=== PATIENT | female | born 1970 | race Hispanic/Latino ===

== ENCOUNTER 2017-08-14 11:41 | Inpatient (IN) | payer OTHER ==
[2017-08-13] MEDS: CEFAZOLIN SOD 1 GM VIAL IV SCH (22:00)
[2017-08-14] VITALS (8 sets, daily range): BP systolic 137–150; BP diastolic 65–91
[~2017-08-14] VITALS: Ht 165.1 cm; Wt 86.2 kg
[~2017-08-14 11:41] MED LIST: ATORVASTATIN CA20 MG PO; BENZONATATE100 MG PO; LISINOPRIL10 MG PO
--- OUTSIDE RECORDS SUMMARY | 2017-08-14 11:44 | XMS REPORT | Clinical Summary ---
Author Author [facility] Organization [facility] Address Unknown Phone Unavailable Care Team Providers Care Information Security Associate Name Role Phone Asked, Pcp PCP Unavailable Allergies No Known Allergies Current Medications Prescription Sig. Disp. Refills Start End Date Status Date ondansetron ODT (ZOFRAN Take 1 tablet (4 mg 10 tablet 0 05/15/20 Active ODT) 4 MG disintegrating total) by mouth every 8 17 tablet (eight) hours as needed for nausea or vomiting for up to 10 doses. dicyclomine (BENTYL) 20 Take 1 tablet (20 mg 10 tablet 0 05/15/20 Active mg tablet total) by mouth every 6 17 (six) hours as needed (bloating, GI cramping) for up to 10 doses. Active Problems Not on file Encounters Date Type Specialty Care Team Description 05/14/2017 Emergency Emergency Medicine Nate Noriega NP-C Epigastric pain (Primary - Edson Mendez Dx); 05/15/2017 MD Chirag Periumbilical abdominal pain; Non-intractable vomiting with nausea, unspecified vomiting type; Diarrhea, unspecified type after 08/13/2016 Social History Tobacco Use Types Packs/Day Years Used Date Never Assessed Sex Assigned at Date Recorded Not on file Last Filed Vital Signs Vital Sign Reading Time Taken Blood Pressure 144/69 05/15/2017 1:00 AM TURN SEWER Pulse 75 05/15/2017 1:00 AM TURN SEWER Temperature 37.2 C (98.9 F) 05/14/2017 7:57 PM TURN SEWER Respiratory Rate 20 05/15/2017 1:00 AM TURN SEWER Oxygen Saturation 95% 05/15/2017 1:00 AM TURN SEWER Inhaled Oxygen - - Concentration Weight 86.2 kg (190 lb) 05/14/2017 7:53 PM TURN SEWER Height 162.6 cm (5' 4") 05/14/2017 7:53 PM TURN SEWER Body Mass Index 32.61 05/14/2017 7:53 PM TURN SEWER Plan of Treatment Health Maintenance Due Date Last Done Comments PAP SMEAR 1989 INFLUENZA VACCINE 01/15/2017 Results * ECG ED Preliminary Interpretation - NOT AN ORDER (05/15/2017 2:22 AM) Narrative CHEVY Oviedo 05/15/20171:11 AM ECG ED Preliminary Interpretation - Not an Order Performed by: NATE NORIEGA Authorized by: NATE NORIEGA ECG reviewed by ED Physician in the absence of a television operator: yes Previous ECG: Previous ECG:Unavailable Interpretation: Interpretation: non-specific Rate: ECG rate:77 ECG rate assessment: normal Rhythm: Rhythm: sinus rhythm QRS: QRS axis:Normal Conduction: Conduction: normal ST segments: ST segments:Normal T waves: T waves: inverted Inverted:II, III, aVF, V3, V4 and V6 * Troponin (05/15/2017 12:22 AM) Only the most recent of 2 results within the time period is included. Component Value Ref Range Troponin <0.300 0.000 - 0.300 ng/mL Comment: 0.30 - 1.49 ng/ml May indicate increased risk of acute coronary syndrome. >=1.5 ng/ml Consistent with acute myocardial infarction. The diagnostic value of a single normal or non-diagnostic result is questionable. Serial samples at 2-6 hour intervals are required to rule out acute myocardial injury. Specimen Performing Laboratory Plasma specimen [facility] DEPARTMENT OF PATHOLOGY AND GENOMIC MEDICINE [address] [place] [address] * ECG 12 lead (05/14/2017 11:00 PM) Component Value Ref Range Ventricular rate 77 Atrial rate 77 AL interval 124 QRSD interval 82 QT interval 428 QTC interval 484 P axis 1 35 QRS axis 1 9 T wave axis 264 EKG impression Normal sinus rhythm-ST & T wave abnormality, consider inferior ischemia-ST & T wave abnormality, consider anterior ischemia-Prolonged QT-Abnormal ECG-No previous ECGs available- Specimen Performing Laboratory [facility] [address] [place] [address] * Urinalysis screen and microscopy, with reflex to culture (05/14/2017 10:44 PM) Component Value Ref Range Specimen site Clean catch Color, UA Straw Appearance, UA Clear Specific gravity, UA 1.014 1.001 - 1.035 pH, UA 7.0 5.0 - 8.5 Protein, UA Negative Negative Glucose, UA Negative Negative Ketones, UA Negative Negative Bilirubin, UA Negative Negative Blood, UA Negative Negative Nitrite, UA Negative Negative Urobilinogen, UA Negative <2.0 Leukocyte esterase, UA Negative Negative Epithelial cells, UA Few /HPF WBC, UA 0-5 0 - 4 /HPF RBC, UA 0-5 0 - 2 /HPF Bacteria, UA None seen None seen Yeast, UA None seen Yeast with pseudohyphae, None seen UA Specimen Performing Laboratory Urine [facility] DEPARTMENT OF PATHOLOGY AND GENOMIC MEDICINE [id number] [place] [address] [place] [address] * Urine culture (05/14/2017 10:44 PM) Component Value Ref Range Urine culture SEE COMMENTComment: Bacteriuria screen negative. Specimen Performing Laboratory Urine [facility] DEPARTMENT OF PATHOLOGY AND [facility] [id number] [place] [address] [place] [address] * CT Abdomen Pelvis W Contrast (05/14/2017 10:30 PM) Specimen Performing Laboratory [facility] [address] [place] [id number] ABDOMEN PELVIS W CONTRAST CLINICAL INDICATION: ABDOMINAL PAIN TECHNIQUE:Multidetector CT imaging of the abdomen and pelvis was performed following the intravenous administration of iodinated contrast with multiplanar reconstructions.CT imaging was performed with iterative reconstruction technique and/or automated exposure control to reduce radiation dose. COMPARISON:None FINDINGS: LOWER THORAX:Aside from mild bibasilar atelectasis, the visualized lungs are clear. LIVER:There is hepatic steatosis. No focal lesions are identified. BILIARY:There are surgical changes related to cholecystectomy. There is no abnormal biliary dilation. SPLEEN:Normal. PANCREAS:Normal. ADRENALS:Normal. KIDNEYS:There is relative hypoenhancement of the upper half of the right kidney with an internal cystic focus in this nonenhancing region. The left kidney is normal in appearance. There is no hydronephrosis. GI:Large and small bowel are normal in caliber.There are no inflammatory changes.Appendix is visualized and appears normal. VASCULAR:Unremarkable LYMPH NODES:No enlarged lymph nodes in the abdomen or pelvis. PELVIS:The urinary bladder is normal in appearance. There is a 1.5 cm calcified uterine fibroid. The uterus is otherwise unremarkable. BONES:There are no acute osseous abnormalities. OTHER:There is no ascites or pneumoperitoneum. IMPRESSION: 1. Relative hypoenhancement of the upper half of the right kidney, with an internal cystic area. This is nonspecific with some possibilities including a renal infarction and complex renal mass. Correlation with prior imaging is recommended if available. If no prior imaging is available, a renal protocol MRI is recommended for further characterization. 2. Hepatic steatosis. 3. Calcified uterine fibroid. [facility]-[id number] Procedure Note Hm Interface, Radiology Results Incoming - 05/14/2017 10:[address] ABDOMEN PELVIS W CONTRAST CLINICAL INDICATION: ABDOMINAL PAIN TECHNIQUE: Multidetector CT imaging of the abdomen and pelvis was performed following the intravenous administration of iodinated contrast with multiplanar reconstructions. CT imaging was performed with iterative reconstruction technique and/or automated exposure control to reduce radiation dose. COMPARISON: None FINDINGS: LOWER THORAX: Aside from mild bibasilar atelectasis, the visualized lungs are clear. LIVER: There is hepatic steatosis. No focal lesions are identified. BILIARY: There are surgical changes related to cholecystectomy. There is no abnormal biliary dilation. SPLEEN: Normal. PANCREAS: Normal. ADRENALS: Normal. KIDNEYS: There is relative hypoenhancement of the upper half of the right kidney with an internal cystic focus in this nonenhancing region. The left kidney is normal in appearance. There is no hydronephrosis. GI: Large and small bowel are normal in caliber. There are no inflammatory changes. Appendix is visualized and appears normal. VASCULAR: Unremarkable LYMPH NODES: No enlarged lymph nodes in the abdomen or pelvis. PELVIS: The urinary bladder is normal in appearance. There is a 1.5 cm calcified uterine fibroid. The uterus is otherwise unremarkable. BONES: There are no acute osseous abnormalities. OTHER: There is no ascites or pneumoperitoneum. IMPRESSION: 1. Relative hypoenhancement of the upper half of the right kidney, with an internal cystic area. This is nonspecific with some possibilities including a renal infarction and complex renal mass. Correlation with prior imaging is recommended if available. If no prior imaging is available, a renal protocol MRI is recommended for further characterization. 2. Hepatic steatosis. 3. Calcified uterine fibroid. [facility]-[id number] * hCG qualitative, serum screen (05/14/2017 9:35 PM) Component Value Ref Range hCG qualitative, serum Negative Specimen Performing Laboratory Blood [facility] DEPARTMENT OF PATHOLOGY AND GENOMIC MEDICINE [address] [place] [address] * Estimated GFR (05/14/2017 8:45 PM) Component Value Ref Range GFR Non Af Amer 89 mL/min/1.73 m2 GFR Af Amer >90 mL/min/1.73 m2 Comment: Chronic kidney disease: <60 mL/min/1.73m2 Kidney failure: <15 mL/min/1.73m2 The estimated GFR is calculated from the IDMS-traceable Modification of Diet in Renal Disease Equation. The accuracy of the calculation is poor when the creatinine is normal. Calculated values >90 mL/min/1.73m2 are not reported. This equation has not been validated in children (<18 years), women, the elderly (>70 years), or ethnic groups other than Caucasians and Americans. Specimen Performing Laboratory Plasma specimen [facility] DEPARTMENT OF PATHOLOGY AND [facility] [id number] [place] [address] [place] [address] * CBC with platelet and differential (05/14/2017 8:45 PM) Component Value Ref Range WBC 9.42 4.50 - 11.00 k/uL RBC 5.03 4.20 - 5.50 m/uL HGB 15.5 12.0 - 16.0 g/dL HCT 43.9 37.0 - 47.0 % MCV 87.3 82.0 - 100.0 fL MCH 30.8 27.0 - 34.0 pg MCHC 35.3 31.0 - 37.0 g/dL RDW - SD 39.9 37.0 - 55.0 fL MPV 10.0 8.8 - 13.2 fL Platelet count 270 150 - 400 k/uL Nucleated RBC 0.00 /100 WBC Neutrophils 87.3 (H) 39.0 - 69.0 % Lymphocytes 6.5 (L) 25.0 - 45.0 % Monocytes 5.7 0.0 - 10.0 % Eosinophils 0.1 0.0 - 5.0 % Basophils 0.1 0.0 - 1.0 % Immature granulocytes 0.3Comment: "Immature granulocytes" 0.0 - 1.0 % (promyelocytes, myelocytes, metamyelocytes) Specimen Performing Laboratory Blood [facility] DEPARTMENT OF PATHOLOGY AND GENOMIC MEDICINE [address] [place] [address] * B natriuretic peptide (05/14/2017 8:45 PM) Component Value Ref Range BNP 13 0 - 100 pg/mL Specimen Performing Laboratory Blood [facility] DEPARTMENT OF PATHOLOGY AND GENOMIC MEDICINE [address] [place] [address] * Lipase level (05/14/2017 8:45 PM) Component Value Ref Range Lipase 13 13 - 60 U/L Specimen Performing Laboratory Plasma specimen [facility] DEPARTMENT OF PATHOLOGY AND GENOMIC MEDICINE [address] [place] [address] * Comprehensive metabolic panel (05/14/2017 8:45 PM) Component Value Ref Range Sodium 138 135 - 148 mEq/L Potassium 2.8 (LL) 3.5 - 5.0 mEq/L Comment: Results called to and read back by SARAVANAN LINCOLN IN ER at 05/14/2017 21:15 by [id number]. Chloride 96 (L) 98 - 112 mEq/L CO2 27 24 - 31 mEq/L Anion gap 15 7 - 15 mEq/L Comment: Starting from September , anion gap calculation no longer incorporates potassium. Please note the change. BUN 14 6 - 20 mg/dL Creatinine 0.7 0.5 - 0.9 mg/dL Glucose 129 (H) 65 - 99 mg/dL Calcium 9.2 8.3 - 10.2 mg/dL Protein 8.1 6.3 - 8.3 g/dL Comment: [place] 4.6-7.0 g/dL 1 week 4.4-7.6 g/dL 7 months-1year 5.1-7.3 g/dL 1-2 years 5.6-7.5 g/dL >3 years 6.0-8.0 g/dL 18-150 6.3-8.3 g/dL Albumin 4.6 3.5 - 5.0 g/dL A/G ratio 1.3 0.7 - 3.8 Alkaline phosphatase 107 (H) 35 - 104 U/L AST 41 (H) 10 - 35 U/L ALT 58 (H) 5 - 50 U/L Total bilirubin 0.4 0.0 - 1.2 mg/dL Specimen Performing Laboratory Plasma specimen [facility] DEPARTMENT OF PATHOLOGY AND GENOMIC MEDICINE [address] [place] [address] after 08/13/2016
[2017-08-14] MEDS ORDERED: CEFAZOLIN SOD 2 GM/D5W 50ML 50 ML IV ONE (12:21)
[2017-08-14] MEDS ORDERED: LOSARTAN POTAS100 MG PO (13:02)
[2017-08-14] MEDS ORDERED: MIDAZOLAM HCL 2 MG/2 ML VIAL ONE (13:21)
[2017-08-14] MEDS ORDERED: FENTANYL CITRATE/PF 100MCG/2 ML INJ ONE ×2 (13:21→17:44)
[2017-08-14] MEDS ORDERED: IOPAMIDOL 610MG/1ML 300 MG/ML VIAL IV ONE (13:26)
[2017-08-14] MEDS ORDERED: LIDOCAINE HCL 2% LOCAL INJ 5 ML SDV VIAL INJ ONE (13:27)
[2017-08-14] MEDS ORDERED: SEVOFLURANE INHAL SOLN 250 ML PEN BTL ONE (13:27)
[2017-08-14] MEDS ORDERED: ROCURONIUM BROMIDE 10 MG/ML 5ML VIAL ONE (13:27)
[2017-08-14] MEDS ORDERED: DEXAMETHASONE SOD PHOS INJ 4 MG/ML VIAL ONE (13:27)
[2017-08-14] MEDS ORDERED: PROPOFOL IV EMULSION 10 MG/ML 20 ML VIAL ONE (13:27)
[2017-08-14] MEDS ORDERED: ONDANSETRON HCL INJ 2 MG/ML VIAL ONE (13:27)
[2017-08-14] MEDS ORDERED: MANNITOL 25% 12.5GM/50ML 0 ML ONE (13:36)
[2017-08-14] MEDS ORDERED: GELATIN SPONGE SZ 100 ONE (13:36)
[2017-08-14] MEDS ORDERED: HYDROMORPHONE 1MG/1ML INJ ONE ×2 (16:28→16:34)
[2017-08-14] MEDS ORDERED: DIPHENHYDRAMINE HCL INJ 50 MG/ML VIAL IM PRN (17:45)
[2017-08-14] MEDS ORDERED: MORPHINE SULFATE 1 MG/ML 30ML PCA IV PRN (17:45)
[2017-08-14] MEDS ORDERED: NALOXONE HCL INJ 0.4 MG/ML AMP IV PRN (17:45)
--- NOTE | 2017-08-14 18:16 | Diagnostic Imaging Report ---
PROCEDURE: CHEST SINGLE (PORTABLE) COMPARISON: None. INDICATIONS: POST OP right nephrectomy FINDINGS: Lines/tubes: Enteric tube terminates at the diaphragm in the proximal stomach. LUNGS: Mild posterior atelectasis in the right lung. Left lung is clear. PLEURA: No effusions or pneumothorax. HEART \T\ MEDIASTINUM: The heart is normal in size. No hilar lymphadenopathy. BONES: No focal osseous lesions. SOFT TISSUES: Pneumoperitoneum is present with surgical clips in the upper right quadrant and right upper quadrant skin andrae. CONCLUSION: No evidence of pneumothorax. Enteric tube as described above. Postoperative pneumoperitoneum. Dictated by: Mason De Oliveira M.D. on 08/14/2017 at 18:16 Electronically approved by: Mason De Oliveira M.D. on 08/14/2017 at 18:16
--- OUTSIDE RECORDS SUMMARY | 2017-08-14 18:16 | XMS REPORT | Clinical Summary ---
Author Author [facility] Address Unknown Phone Unavailable Care Team Providers Care Wax Ball Knock Out Worker Name Role Phone Asked, Pcp PCP Unavailable [...] Taken Blood Pressure 144/69 05/15/2017 1:00 AM TRANSIT CLERK Pulse 75 05/15/2017 1:00 AM TRANSIT CLERK Temperature 37.2 C (98.9 F) 05/14/2017 7:57 PM TRANSIT CLERK Respiratory Rate 20 05/15/2017 1:00 AM TRANSIT CLERK Oxygen Saturation 95% 05/15/2017 1:00 AM TRANSIT CLERK Inhaled Oxygen - - Concentration Weight 86.2 kg (190 lb) 05/14/2017 7:53 PM TRANSIT CLERK Height 162.6 cm (5' 4") 05/14/2017 7:53 PM TRANSIT CLERK Body Mass Index 32.61 05/14/2017 7:53 PM TRANSIT CLERK Plan of Treatment Health Maintenance Due Date Last Done Comments PAP SMEAR 1989 INFLUENZA VACCINE 01/15/2017 Results * ECG ED Preliminary Interpretation - NOT AN ORDER (05/15/2017 2:22 AM) Narrative CHEVY Oviedo 05/15/20171:11 AM ECG ED Preliminary Interpretation - Not an Order Performed by: NATE NORIEGA Authorized by: NATE NORIEGA ECG reviewed by ED Physician in the absence of a geological engineer: yes Previous ECG: Previous ECG:Unavailable Interpretation: Interpretation: [...] myocardial injury. Specimen Performing Laboratory Plasma specimen [facility] DEPARTMENT OF PATHOLOGY AND GENOMIC MEDICINE [address] [place] [address] * ECG 12 lead (05/14/2017 11:00 PM) Component Value Ref Range Ventricular rate 77 Atrial rate 77 IA interval 124 QRSD interval 82 QT interval 428 QTC interval 484 P axis 1 35 QRS axis 1 9 T wave axis 264 EKG impression Normal sinus rhythm-ST & T wave abnormality, consider inferior ischemia-ST & T wave abnormality, consider anterior ischemia-Prolonged QT-Abnormal ECG-No previous ECGs available- Specimen Performing Laboratory [facility] [address] [place] [address] * Urinalysis screen and microscopy, with reflex [...] None seen UA Specimen Performing Laboratory Urine [facility] DEPARTMENT OF PATHOLOGY AND GENOMIC MEDICINE [id number] [place] [address] [place] [address] * Urine culture (05/14/2017 10:44 PM) Component Value Ref Range Urine culture SEE COMMENTComment: Bacteriuria screen negative. Specimen Performing Laboratory Urine [facility] DEPARTMENT OF PATHOLOGY AND [facility] [id number] [place] [address] [place] [address] * CT Abdomen Pelvis W Contrast (05/14/2017 10:30 PM) Specimen Performing Laboratory [facility] [address] [place] [address] ABDOMEN PELVIS W CONTRAST CLINICAL [...] 2. Hepatic steatosis. 3. Calcified uterine fibroid. [facility]-[id number] Procedure Note Hm Interface, Radiology Results Incoming - 05/14/2017 10:[address] ABDOMEN PELVIS W CONTRAST CLINICAL INDICATION: [...] 2. Hepatic steatosis. 3. Calcified uterine fibroid. [facility]-[id number] * hCG qualitative, serum screen (05/14/2017 9:35 PM) Component Value Ref Range hCG qualitative, serum Negative Specimen Performing Laboratory Blood [facility] DEPARTMENT OF PATHOLOGY AND GENOMIC MEDICINE [address] [place] [address] * Estimated GFR (05/14/2017 8:45 PM) Component [...] and Americans. Specimen Performing Laboratory Plasma specimen [facility] DEPARTMENT OF PATHOLOGY AND [facility] MEDICINE [id number] [place] [address] [place] [address] * CBC with platelet and differential (05/14/2017 [...] (promyelocytes, myelocytes, metamyelocytes) Specimen Performing Laboratory Blood [facility] DEPARTMENT OF PATHOLOGY AND GENOMIC MEDICINE [address] [place] [address] * B natriuretic peptide (05/14/2017 8:45 PM) Component Value Ref Range BNP 13 0 - 100 pg/mL Specimen Performing Laboratory Blood [facility] DEPARTMENT OF PATHOLOGY AND GENOMIC MEDICINE [address] [place] [address] * Lipase level (05/14/2017 8:45 PM) Component Value Ref Range Lipase 13 13 - 60 U/L Specimen Performing Laboratory Plasma specimen [facility] DEPARTMENT OF PATHOLOGY AND GENOMIC MEDICINE [address] [place] [address] * Comprehensive metabolic panel (05/14/2017 8:45 PM) Component Value Ref Range Sodium 138 135 - 148 mEq/L Potassium 2.8 (LL) 3.5 - 5.0 mEq/L Comment: Results called to and read back by SARAVANAN LINCOLN IN ER at 05/14/2017 21:15 by [id number]. Chloride 96 (L) 98 - 112 mEq/L [...] Protein 8.1 6.3 - 8.3 g/dL Comment: [place] 4.6-7.0 g/dL 1 week 4.4-7.6 g/dL 7 [...] 1.2 mg/dL Specimen Performing Laboratory Plasma specimen [facility] DEPARTMENT OF PATHOLOGY AND GENOMIC MEDICINE [address] [place] [address] after 08/13/2016
[2017-08-14] MEDS: D5.45%NS/KCL 20MEQ 1,000 ML IV SCH (18:30)
[2017-08-14] MEDS: ACETAMINOPHEN 1000 MG/100 ML IV PRN (20:45)
[2017-08-14] MEDS: ONDANSETRON HCL INJ 2 MG/ML VIAL IV PRN (20:45)
[2017-08-14 21:49] LABS: BASOPHILS % 0.1 % (0.0-1.0); HEMATOCRIT 39.6 % (34.2-44.1); HEMOGLOBIN 13.4 g/dL (12.0-16.0); LYMPHOCYTES # (AUTO) 0.5 (1.0-3.2); LYMPHOCYTES % 3.1 % (18.0-39.1); MEAN CORPUSCULAR HEMOGLOBIN 30.6 pg (28-32); MEAN CORPUSCULAR HGB CONC 33.8 g/dL (31-35); MEAN CORPUSCULAR VOLUME 90.4 fL (81-99); MONOCYTES # (AUTO) 0.6 (0.2-0.8); MONOCYTES % 3.8 % (4.4-11.3); NEUTROPHILS # (AUTO) 14.2 (2.1-6.9); NEUTROPHILS % 92.7 % (38.7-80.0); PLATELET COUNT 271 x10e3/uL (140-360); RED BLOOD COUNT 4.38 x10e6/uL (3.6-5.1); RED CELL DISTRIBUTION WIDTH 12.2 % (11.7-14.4)
[2017-08-14 22:00] LABS: INR 1.03; PROTHROMBIN TIME 12.7 seconds (11.9-14.5)
[2017-08-14] MEDS ORDERED: CEFAZOLIN SOD 1 GM/NS 50ML 50 ML IV SCH (22:00)
[2017-08-14 22:05] LABS: ANION GAP 13.7 mmol/L (8-16); BLOOD UREA NITROGEN 15 mg/dL (7-26); BUN/CREATININE RATIO 19 (6-25); CALCIUM 8.1 mg/dL (8.4-10.2); CARBON DIOXIDE 21 mmol/L (22-29); CHLORIDE 107 mmol/L (98-107); CREATININE, SERUM 0.81 mg/dL (0.57-1.11); EST GLOMERULAR FILTRATION RATE > 60 ML/MIN (60-); GLUCOSE 192 mg/dL (74-118); MAGNESIUM 1.7 MG/DL (1.3-2.1); POTASSIUM 3.7 mmol/L (3.5-5.1); SODIUM 138 mmol/L (136-145)
--- NOTE | 2017-08-14 23:51 | Operative Report ---
DATE OF PROCEDURE: August 14, 2017 SERVICE: Urology. PREOPERATIVE DIAGNOSES: 1. Right solid renal mass suspicious for malignancy. 2. Microhematuria. 3. Cystocele. POSTOPERATIVE DIAGNOSES: 1. Right solid renal mass suspicious for malignancy. 2. Microhematuria. 3. Cystocele. OPERATIONS PERFORMED: 1. Cystoscopy and bilateral retrograde pyelograms under fluoroscopic control, this is done as part of the assessment of the microhematuria. This is done with different instruments in the rest of the surgery. 2. Interpretation of x-ray, radiologist not present. 3. Supervision of fluoroscopy. 4. Pelvic examination under anesthesia, this is done as part of evaluation of the cystocele, not related to any other procedure. 5. Right radical nephrectomy. MOTOR VEHICLE LICENCE EXAMINER: Dr. Silva ANESTHESIA: General. CLINICAL INDICATION NOTE: This is a 47-year-old patient who was found to have a solid mass in the right kidney very suspicious for malignancy. The patient was brought for assessment of the lower and upper tract, and right radical nephrectomy. Procedure was discussed with the patient. Potential benefits and complications discussed, explained and accepted. DESCRIPTION OF PROCEDURE AND FINDINGS: After proper level of anesthesia was achieved, the patient was placed in lithotomy position in a separate room from the nephrectomy room, prepped and draped in sterile fashion. Urethra inspected is unremarkable. Patient does have a cystocele. The bladder itself is unremarkable. No tumor or foreign body is identified. Open-end catheters were inserted bilaterally, and retrograde ureteral pyelograms were done under fluoroscopic control. No intrinsic lesions were identified in the left kidney. There is some deformity of the calices on the right. No tumor or foreign body present in the bladder. The scope was removed, and a 20-Vietnamese Valle catheter was inserted and connected to a collecting bag. Following this, pelvic exam was done under anesthesia. No midline or adnexal masses were palpable. At this point, the patient was transferred to the open room. She was placed in the right up flank position, prepped and draped in sterile fashion. The incision was then made in the flank along the 12th rib. Of note, the patient is quite obese. The external, internal, and transversalis muscles were incised. The retroperitoneum was entered. Dissection of the kidney within Gerota fascia was then done. The upper pole of the kidney was from the adrenal, there is no mass in the upper pole. Vascular clips and ligation were used. Dissecting medially was done as well. Following this, dissection in the inferior pole and the ureter was done. The ureter was identified, doubly clipped and transected. Following this, dissection of the pedicle was carried out. The renal artery was identified, doubly ligated. Vascular clip was to the 2 sutures and transected. The renal vein was again doubly ligated with #1 silk, clips were placed to secure the suture, and the specimen was removed. All the tissues present lateral to the inferior vena cava was removed with the specimen in 1 specimen. The wound was irrigated periodically with fluid. Any visible bleeding points were carefully coagulated or ligated. Selected not to leave a drain, which did not seem to be necessary. The wound was then closed in layers using #0 Vicryl interrupted sutures of internal and transversalis fascia and then the external oblique fascia. The skin was approximated with skin clips. NG tube was kept in place as well as the Valle. The patient was transferred to recovery room in satisfactory condition. Estimated blood loss may be 150 mL. RAUL CERDA MD Job#: [id number]
[2017-08-15] VITALS (15 sets, daily range): BP systolic 105–139; BP diastolic 45–70
[2017-08-15] MEDS: D5.45%NS/KCL 20MEQ 1,000 ML IV SCH ×3 (04:05→20:59)
[2017-08-15] MEDS: ACETAMINOPHEN 1000 MG/100 ML IV PRN (04:05)
[2017-08-15] MEDS: ONDANSETRON HCL INJ 2 MG/ML VIAL IV PRN ×2 (04:30→11:29)
[2017-08-15] MEDS ORDERED: PNEUMOCOCCAL VACCINE POLYVALENT 23 MCG/0.5 ML VIAL IM ONE (05:30)
[2017-08-15] MEDS: CEFAZOLIN SOD 1 GM VIAL IV SCH ×3 (06:03→22:13)
[2017-08-15 07:14] LABS: BASOPHILS % 0.1 % (0.0-1.0); HEMATOCRIT 34.7 % (34.2-44.1); HEMOGLOBIN 11.9 g/dL (12.0-16.0); LYMPHOCYTES # (AUTO) 0.8 (1.0-3.2); LYMPHOCYTES % 6.8 % (18.0-39.1); MEAN CORPUSCULAR HEMOGLOBIN 30.8 pg (28-32); MEAN CORPUSCULAR HGB CONC 34.3 g/dL (31-35); MEAN CORPUSCULAR VOLUME 89.9 fL (81-99); MONOCYTES # (AUTO) 1.2 (0.2-0.8); MONOCYTES % 10.6 % (4.4-11.3); NEUTROPHILS # (AUTO) 9.4 (2.1-6.9); NEUTROPHILS % 82.1 % (38.7-80.0); PLATELET COUNT 263 x10e3/uL (140-360); RED BLOOD COUNT 3.86 x10e6/uL (3.6-5.1); RED CELL DISTRIBUTION WIDTH 12.4 % (11.7-14.4)
[2017-08-15 07:24] LABS: ANION GAP 13.4 mmol/L (8-16); BLOOD UREA NITROGEN 17 mg/dL (7-26); BUN/CREATININE RATIO 18 (6-25); CALCIUM 7.7 mg/dL (8.4-10.2); CARBON DIOXIDE 20 mmol/L (22-29); CHLORIDE 107 mmol/L (98-107); CREATININE, SERUM 0.97 mg/dL (0.57-1.11); EST GLOMERULAR FILTRATION RATE > 60 ML/MIN (60-); GLUCOSE 152 mg/dL (74-118); POTASSIUM 4.4 mmol/L (3.5-5.1); SODIUM 136 mmol/L (136-145)
[2017-08-16] VITALS (8 sets, daily range): BP systolic 110–139; BP diastolic 49–70
[2017-08-16] MEDS: D5.45%NS/KCL 20MEQ 1,000 ML IV SCH ×3 (04:00→22:44)
[2017-08-16 06:23] LABS: BASOPHILS % 0.2 % (0.0-1.0); EOSINOPHILS % 0.1 % (0.0-6.0); HEMATOCRIT 32.4 % (34.2-44.1); HEMOGLOBIN 10.7 g/dL (12.0-16.0); LYMPHOCYTES % 10.3 % (18.0-39.1); MEAN CORPUSCULAR HEMOGLOBIN 30.7 pg (28-32); MEAN CORPUSCULAR VOLUME 92.8 fL (81-99); MONOCYTES % 9.5 % (4.4-11.3); NEUTROPHILS # (AUTO) 7.9 (2.1-6.9); NEUTROPHILS % 79.5 % (38.7-80.0); PLATELET COUNT 207 x10e3/uL (140-360); RED BLOOD COUNT 3.49 x10e6/uL (3.6-5.1); RED CELL DISTRIBUTION WIDTH 12.6 % (11.7-14.4)
[2017-08-16 06:50] LABS: ANION GAP 8.7 mmol/L (8-16); BLOOD UREA NITROGEN 13 mg/dL (7-26); BUN/CREATININE RATIO 14 (6-25); CALCIUM 7.9 mg/dL (8.4-10.2); CARBON DIOXIDE 26 mmol/L (22-29); CHLORIDE 105 mmol/L (98-107); CREATININE, SERUM 0.93 mg/dL (0.57-1.11); EST GLOMERULAR FILTRATION RATE > 60 ML/MIN (60-); GLUCOSE 135 mg/dL (74-118); POTASSIUM 4.7 mmol/L (3.5-5.1); SODIUM 135 mmol/L (136-145)
[2017-08-16] MEDS: CEFAZOLIN SOD 1 GM VIAL IV SCH (07:23)
[2017-08-16] MEDS: MORPHINE SULFATE 2 MG/ML SYR IV PRN ×2 (12:14→19:29)
[2017-08-16] MEDS: ACETAMINOPHEN 325 MG TAB PO PRN (18:05)
[2017-08-17] MEDS: MORPHINE SULFATE 2 MG/ML SYR IV PRN ×3 (02:32→16:40)
[2017-08-17 04:30] VITALS: BP 137/73
[2017-08-17 06:48] LABS: BASOPHILS % 0.1 % (0.0-1.0); EOSINOPHILS % 0.2 % (0.0-6.0); HEMATOCRIT 31.2 % (34.2-44.1); HEMOGLOBIN 10.7 g/dL (12.0-16.0); LYMPHOCYTES # (AUTO) 1.1 (1.0-3.2); LYMPHOCYTES % 11.4 % (18.0-39.1); MEAN CORPUSCULAR HEMOGLOBIN 31.4 pg (28-32); MEAN CORPUSCULAR HGB CONC 34.3 g/dL (31-35); MEAN CORPUSCULAR VOLUME 91.5 fL (81-99); MONOCYTES % 9.9 % (4.4-11.3); NEUTROPHILS # (AUTO) 7.8 (2.1-6.9); NEUTROPHILS % 77.9 % (38.7-80.0); PLATELET COUNT 221 x10e3/uL (140-360); RED BLOOD COUNT 3.41 x10e6/uL (3.6-5.1); RED CELL DISTRIBUTION WIDTH 12.6 % (11.7-14.4)
[2017-08-17] MEDS: D5.45%NS/KCL 20MEQ 1,000 ML IV SCH (07:00)
[2017-08-17 07:07] LABS: ANION GAP 12.3 mmol/L (8-16); BLOOD UREA NITROGEN 8 mg/dL (7-26); BUN/CREATININE RATIO 11 (6-25); CALCIUM 8.3 mg/dL (8.4-10.2); CARBON DIOXIDE 24 mmol/L (22-29); CHLORIDE 107 mmol/L (98-107); CREATININE, SERUM 0.75 mg/dL (0.57-1.11); EST GLOMERULAR FILTRATION RATE > 60 ML/MIN (60-); GLUCOSE 115 mg/dL (74-118); POTASSIUM 4.3 mmol/L (3.5-5.1); SODIUM 139 mmol/L (136-145)
[2017-08-17] MEDS ORDERED: BENZONATATE 100 MG CAP PO PRN (07:15)
[2017-08-17 08:32] VITALS: BP_SYST 131; BP_SYST 132; BP_DIAS 73
[2017-08-17] MEDS: ACETAMINOPHEN 325 MG TAB PO PRN ×2 (08:37→19:02)
[2017-08-17 14:35] VITALS: BP_SYST 132; BP_SYST 144; BP_DIAS 65; BP_DIAS 87
[2017-08-17 15:39] VITALS: BP 132/73
[2017-08-17 18:47] VITALS: BP 144/87
[2017-08-17 19:45] VITALS: BP 134/69
[2017-08-18] VITALS (9 sets, daily range): BP systolic 126–149; BP diastolic 60–72
[2017-08-18] MEDS: MORPHINE SULFATE 2 MG/ML SYR IV PRN ×3 (00:05→15:41)
[2017-08-18] MEDS: ONDANSETRON HCL INJ 2 MG/ML VIAL IV PRN (00:05)
[2017-08-18 06:53] LABS: BASOPHILS % 0.3 % (0.0-1.0); EOSINOPHILS # (AUTO) 0.2 (0.0-0.4); EOSINOPHILS % 2.1 % (0.0-6.0); HEMATOCRIT 29.7 % (34.2-44.1); HEMOGLOBIN 10.3 g/dL (12.0-16.0); MEAN CORPUSCULAR HEMOGLOBIN 30.8 pg (28-32); MEAN CORPUSCULAR HGB CONC 34.7 g/dL (31-35); MEAN CORPUSCULAR VOLUME 88.9 fL (81-99); MONOCYTES # (AUTO) 0.5 (0.2-0.8); MONOCYTES % 7.3 % (4.4-11.3); NEUTROPHILS # (AUTO) 5.5 (2.1-6.9); PLATELET COUNT 239 x10e3/uL (140-360); RED BLOOD COUNT 3.34 x10e6/uL (3.6-5.1); RED CELL DISTRIBUTION WIDTH 12.3 % (11.7-14.4)
[2017-08-18 07:09] LABS: ANION GAP 12.9 mmol/L (8-16); BLOOD UREA NITROGEN 9 mg/dL (7-26); BUN/CREATININE RATIO 13 (6-25); CALCIUM 8.7 mg/dL (8.4-10.2); CARBON DIOXIDE 25 mmol/L (22-29); CHLORIDE 103 mmol/L (98-107); CREATININE, SERUM 0.72 mg/dL (0.57-1.11); EST GLOMERULAR FILTRATION RATE > 60 ML/MIN (60-); GLUCOSE 109 mg/dL (74-118); POTASSIUM 3.9 mmol/L (3.5-5.1); SODIUM 137 mmol/L (136-145)
[2017-08-18] MEDS: ACETAMINOPHEN/CODEINE 300MG - 30MG TAB PO PRN ×2 (10:41→23:27)
[2017-08-19] VITALS: BP 119/76
[2017-08-19] MEDS: MORPHINE SULFATE 2 MG/ML SYR IV PRN (04:26)
[2017-08-19 04:46] VITALS: BP 126/60
[2017-08-19 07:37] VITALS: BP 120/59
[2017-08-19 08:20] VITALS: BP 120/59
[2017-08-19] MEDS ORDERED: ACETAMINOPHEN/CODEINE 300MG - 30MG TAB PO PRN (10:00)
[2017-08-19 11:53] VITALS: BP 109/61
[2017-08-19] MEDS ORDERED: TYLENOL WITH C1 EACH PO (15:04)
[2017-08-19] MEDS ORDERED: ZOFRAN ODT4 MG PO (15:05)
[2017-08-19 15:46] VITALS: BP 130/81
== END 2017-08-19 16:07 | disposition home or self-care (01) | DRG 824 ==
LOC: OR 11:41 → IMCU 18:14 → MED/SURG 08-18 11:08
PROVIDERS: ADMIT Internal Medicine; ATTEND Internal Medicine
PROC: BT1F1ZZ Fluoroscopy of Left Kidney, Ureter and Bladder using Low Osmolar Contrast (ICD-10-PCS; 2017-08-14)
PROC: BT1D1ZZ Fluoroscopy of Right Kidney, Ureter and Bladder using Low Osmolar Contrast (ICD-10-PCS; 2017-08-14)
PROC: 0TT00ZZ Resection of Right Kidney, Open Approach (ICD-10-PCS; principal; 2017-08-14 13:30)
PROC: 0TT60ZZ Resection of Right Ureter, Open Approach (ICD-10-PCS; 2017-08-14 13:30)
DX: C88.4 Extranodal marginal zone B-cell lymphoma of mucosa-associated lymphoid tissue [MALT-lymphoma] (principal); D68.9 Coagulation defect, unspecified; N81.10 Cystocele, unspecified; E66.9 Obesity, unspecified; Z68.31 Body mass index [BMI] 31.0-31.9, adult; D72.829 Elevated white blood cell count, unspecified; D64.9 Anemia, unspecified; R73.9 Hyperglycemia, unspecified; Z23 Encounter for immunization
CPT/HCPCS: 36415; 71045; 74420; 80048; 81025; 83735; 85025; 85610; 86850; 86900; 87040; 87086; 88307; 88309; 90732; 96376; J0690; J1100; J1170; J2001; J2150; J2250; J2270; J2405

== ENCOUNTER → 2017-09-17 | Outpatient (CLI) | payer OTHER ==
[~2017-09-17] MED LIST changes: +LOSARTAN POTAS100 MG PO; +TYLENOL WITH C1 EACH PO; +ZOFRAN ODT4 MG PO
--- NOTE | 2017-09-17 17:19 | Diagnostic Imaging Report ---
Bone Scan, delayed phase INDICATION: Renal tumor, right kidney. Status post right nephrectomy. Evaluate for bone metastases. COMPARISON: None REPORT: Approximately 3 hours following intravenous administration of 28 mCi of Tc-99m MDP, delayed total body images in the anterior and posterior projections and selected spot images were obtained. Degenerative changes are noted in the lower thoracic and lower lumbar spine. Otherwise, distribution of tracer activity is unremarkable throughout the skeletal system. No abnormal accumulation of tracer is seen in the soft tissues or urinary tract. The right kidney is absent. IMPRESSION: No scan evidence of metastatic bone disease. 1. Signed by: Dr. Jillian Hopper M.D. on 09/17/2017 5:16 PM
== END ==
LOC: NM 12:45
PROVIDERS: ATTEND Urology
DX: N28.9 Disorder of kidney and ureter, unspecified (principal); D72.0 Genetic anomalies of leukocytes
CPT/HCPCS: 78306; A9503